=== PATIENT | male | born 1965 | race Caucasian/White ===

== ENCOUNTER 2017-06-03 15:17 | Emergency (ER) | payer MEDICARE, OTHER ==
[~2017-06-03 15:17] MED LIST: ACYC400T PO; ALLO300T2 PO; CENTTAB9 PO; HUMU70IN SQ; INSU100V2 SQ; LEXA10TA PO; PENI500T PO; PRED20 PO; RIVA20 PO; SMZ-800T PO
[2017-06-03 15:19] VITALS: BP 148/88; PULSE 71; RESP 16; TEMP 98.2; O2SAT 98
--- NOTE | 2017-06-03 16:17 | PD ---
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 The patient has chronically dry flaky skin on the pretibial regions bilaterally. He reports that 1 week ago he picked off a piece of flaky skin on his left pretibial region. Since then he has a wound that has not been healing well. He has had occasional bleeding from it. Over the past few days he has developed some increased pain and swelling around the wound and this is what prompted evaluation today. He was concerned because of his history of DVTs. He denies any pain in the left thigh. He denies any chest pain or shortness of breath. Denies fevers or chills. He was seen yesterday by Dr. David Edward and prescribed a 10 day course of Keflex and Bactroban which he has been using as prescribed. He has no other complaints at this time. PFSH Past Medical History Hx Anticoagulant Therapy: Yes Cancer: Yes (aml/lll) Chemotherapy: Yes Diabetes: Yes Patient Takes Glucophage: No Diminished Hearing: No Deep Vein Thrombosis: Yes Gout: Yes Radiation Therapy: Yes Tetanus Vaccination: > 5 Years Past Surgical History Abdominal Surgery: Yes (UMBILICAL/INGROINAL hernia repair) Oral Surgery: Yes (nasal reconstruction) Thoracic Surgery: Yes (port placement and removal) Other Surgery: Yes (enrique filter (ivc) ) Social History Alcohol Use: No Tobacco Use: No Substance Use: No Allergies-Medications (Allergen,Severity, Reaction): Coded Allergies: No Known Allergies (Unverified , 12/12/15) Reported Meds & Prescriptions Reported Meds & Active Scripts Active Reported Humulin R (Insulin Human Regular) 100 Units/Ml Vial 1 Unit SQ DAILYAC Humulin 70/30 (Insulin Isophane & Reg (Human)) 70 /30 Inj 1 Units SQ DIRECTED Centrum (Multivitamins) Tab 1 Tab PO DAILY Smz-Tmp Ds (Sulfamethoxazole-Trimethoprim) 1 Tab Tab 2 Tab PO DAILY Deltasone 20 Mg Tab (Prednisone) 20 Mg Tab 20 Mg PO DAILY Allopurinol 300 Mg Tab 300 Mg PO DAILY Xarelto 20 Mg Tab (Rivaroxaban) 20 Mg Tab 20 Mg PO DAILY Lexapro (Escitalopram Oxalate) 10 Mg Tab 10 Mg PO DAILY Acyclovir 400 mg (Acyclovir) 400 Mg Tab 1 Tab PO BID Pen Vk (Penicillin V Potassium) 500 Mg Tab 500 Mg PO BID Review of Systems Except as stated in HPI: all other systems reviewed are Neg Physical Exam Narrative GENERAL: Well-nourished male in no acute distress SKIN: Warm and dry. Dry cracking skin noted in both pretibial regions. There is an area of skin excoriation that is 2 cm long on the left pretibial region with minimal surrounding cellulitic changes. HEAD: Atraumatic. Normocephalic. EYES: Pupils equal and round. No scleral icterus. No injection or drainage. ENT: No nasal bleeding or discharge. Mucous membranes pink and moist. NECK: Trachea midline. No JVD. CARDIOVASCULAR: Regular rate and rhythm. No murmur appreciated. RESPIRATORY: No accessory muscle use. Clear to auscultation. Breath sounds equal bilaterally. GASTROINTESTINAL: Abdomen soft, non-tender, nondistended. Hepatic and splenic margins not palpable. MUSCULOSKELETAL: Skin as noted above with no pitting edema bilaterally. NEUROLOGICAL: Awake and alert. No obvious cranial nerve deficits. Motor grossly within normal limits. Normal speech. PSYCHIATRIC: Appropriate mood and affect; insight and judgment normal. Data Data Last Documented VS Vital Signs Date Time Temp Pulse Resp B/P (MAP) Pulse Ox O2 Delivery O2 Flow Rate FiO2 06/03/17 17:33 06/03/17 15:19 98.2 71 16 98 Orders Orders Us Leg Venous Doppler (06/03/17 15:29) [facility] Medical Decision Making Medical Screen Exam Complete: Yes Emergency Medical Condition: Yes Medical Record Reviewed: Yes Differential Diagnosis Cellulitis, venous stasis dermatitis, cutaneous ulcer, new DVT Narrative Course 51-year-old male with history of recurrent DVTs, PEs, on eliquis, presents with an area of skin excoriations to the left pretibial region after scratching his leg one week ago. Examination reveals an area of skin excoriation with some surrounding erythema. Currently on Keflex and Bactroban prescribed yesterday. Ultrasound pending. 172: Ultrasound results reveal a DVT of the left leg however it is uncertain the chronicity of this as he has no ultrasounds on record and as noted, the patient has history of multiple DVTs in the past. Clinically the picture is most consistent with skin excoriation with mild cellulitis. Prior to being able to discuss the results with the patient he has apparently eloped. Diagnosis Primary Impression: Left against medical advice Disposition: 07 AGAINST MEDICAL ADVICE Condition: Stable Deyvi Churchill Jun 03, 2017 16:17
--- NOTE | 2017-06-03 17:09 | RADRPT ---
EXAM DATE/TIME: 06/03/2017 15:42 [facility] COMPARISON: No previous studies available for comparison. INDICATIONS : Left leg swelling. MEDICAL HISTORY : Glasses. Anticoagulant therapy. Deep vein thrombosis. GOUT. Diabetes. Chemotherapy. Radiation therapy . SURGICAL HISTORY : Umbilical hernia repair. IVC Filter placement. Nasal reconstruction. Port placement and removal. ENCOUNTER: Initial ACUITY: 1 day PAIN SCORE: 6/10 LOCATION: Left leg. TECHNIQUE: Venous ultrasound of the leg was performed from the inguinal ligament to the proximal calf. Real-rodolfo e, color Doppler and spectral tracing, compression and augmentation techniques were used. FINDINGS: There is deep venous thrombosis extending from the femoral vein proximally into the posterior tibial vein. The superficial venous system is intact. CONCLUSION: 1. Deep venous thrombosis as above Tello Thomason MD on June 03, 2017 at 17:06 Board Certified Radiologist. This report was verified electronically.
== END 2017-06-03 17:34 | disposition left against medical advice (07) ==
LOC: NEPE 15:17
DX: L85.3 Xerosis cutis (principal); I82.412 Acute embolism and thrombosis of left femoral vein; I82.4Z2 Acute embolism and thrombosis of unspecified deep veins of left distal lower extremity; E11.9 Type 2 diabetes mellitus without complications; M10.9 Gout, unspecified; Z79.4 Long term (current) use of insulin; Z86.718 Personal history of other venous thrombosis and embolism; Z86.711 Personal history of pulmonary embolism; Z85.6 Personal history of leukemia
CPT/HCPCS: 93971; 99284

== ENCOUNTER 2018-05-24 15:08 | Inpatient (IN) ==
[2018-05-24] MEDS ORDERED: Morphine Inj 4 MG/ML Vial IV.PUSH ONE ×2 (15:31→17:23)
--- NOTE | 2018-05-24 15:45 | ED ---
HPI General Chief complaint: Chest Pain Stated complaint: Chest pain Dr Durham Time Seen by Provider: 05/24/18 15:26 History of Present Illness HPI narrative: 52-year-old male with remote history of leukemia, history of DVT and PEs, currently on Eliquis, diabetes, IVC filter, presents by private vehicle for evaluation of chest pain. Symptoms started 1 hour prior to arrival. He reports that he was walking inside of his friend's house when he developed substernal chest pressure, left arm cramping sensation, lightheadedness, dizziness, nausea and diaphoresis. Symptoms are moderate with no obvious aggravating relieving factors. He called his primary care physician , Dr. Edward, and was advised to come to the emergency room for further evaluation. He reports that he has had a slight cough and nasal congestion for the past week and is currently on azithromycin for treatment of this. He denies any known history of coronary artery disease. He denies tobacco use. Related Data Home Medications Medication Instructions Recorded Confirmed amitriptyline 25 mg PO TID 05/24/18 05/24/18 amoxicillin 500 mg PO TID 05/24/18 05/24/18 apixaban [Eliquis] 5 mg PO BID 05/24/18 05/24/18 fenofibrate 160 mg PO DAILY 05/24/18 05/24/18 glipizide 5 mg PO BID 05/24/18 05/24/18 methocarbamol 750 mg PO TID 05/24/18 05/24/18 Allergies Allergy/AdvReac Type Severity Reaction Status Date / Time No Known Allergies Allergy Uncoded 12/12/15 23:58 Review of Systems ROS: all other systems reviewed are negative PMFSH Social History Social History Second Hand Smoke Exposure: No Smoking Status: Never smoker How Often Do You Have a Drink Containing Alcohol: Never Recent Travel in [facility] within the Last 8 Weeks: No Recent Out of Country Travel within the Last 8 Weeks: No Immunization History Tetanus Immunization: Unsure Exam Narrative Exam Narrative: GENERAL: Well-developed well-nourished male who appears uncomfortable and anxious on initial examination. His vital signs have been reviewed. SKIN: Warm and dry. HEAD: Atraumatic. Normocephalic. EYES: Pupils equal and round. No scleral icterus. No injection or drainage. ENT: No nasal bleeding or discharge. Mucous membranes pink and moist. NECK: Trachea midline. No JVD. CARDIOVASCULAR: Regular rate and rhythm. No murmur appreciated. RESPIRATORY: No accessory muscle use. Clear to auscultation. Breath sounds equal bilaterally. GASTROINTESTINAL: Abdomen soft, non-tender, nondistended. Hepatic and splenic margins not palpable. MUSCULOSKELETAL: No obvious deformities. The left calf is circumferentially larger than the right which is chronic. Decreased hair growth in the pretibial regions suggestive of peripheral vascular disease. 1+ dorsalis pedis pulses bilaterally. NEUROLOGICAL: Awake and alert. No obvious cranial nerve deficits. Motor grossly within normal limits. Normal speech. Course Initial Documented Vital Signs Temperature 97.6 F 05/24/18 15:11 Pulse Rate 108 H 05/24/18 15:11 Respiratory Rate 28 H 05/24/18 15:11 Blood Pressure 167/68 H 05/24/18 15:11 Pulse Oximetry 99 05/24/18 15:11 Last Documented Vital Signs Temperature 97.6 F 05/24/18 15:11 Pulse Rate 96 H 05/24/18 16:39 Respiratory Rate 18 05/24/18 16:39 Blood Pressure 111/60 05/24/18 16:39 Pulse Oximetry 96 05/24/18 16:39 Medical Decision Making EB Attestation EB supervised visit: Yes Attestation: I, Dr. Cordova, have reviewed the advance practice practitioner' s documentation and am in agreement, met with the patient face to face, made the diagnosis, and the medical decision making was done by me. *My assessment and Findings: The patient is a 52-year-old male with a complicated history of AML/AL L that was treated with stem cell therapy at [facility] in [place], [place]. The patient a complicated history and subsequently developed pulmonary embolism and DVTs. The patient has had an IVC filter placed and was initially on Coumadin, however, had rectal bleeding. The patient developed PEs once again was placed back on Eliquis. The patient states he developed chest pain earlier today that was left-sided to substernal, sharp, radiated down the lateral aspect of the chest wall and down the left arm. The patient had mild shortness of breath, nausea, and diaphoresis. The patient presented to the emergency department had an EKG that had some nonspecific T wave inversions in 1 and aVL as well as mild ST elevation in V3 that was not seen in V2 or V4. The patient was chest pain-free after 2 nitroglycerin sublingual and morphine. The patient denies any history of coronary artery disease but is followed by his ore puncher, Dr. Pereira. The patient denies any previous heart catheterizations or recent exertional symptoms. The patient's troponin was elevated 0.11. Therefore, a call was placed to the patient's ore puncher, however, the call center for Dr. Paredes states he does not come to this hospital and recommended calling the on-call [employer] physician. Therefore, Dr. Chatterjee was paged at 4:40 PM. The patient will be admitted to the medical service with consultation to cardiology. MDM Narrative Medical decision making narrative: The patient was placed on ECG monitoring pulse oximetry. A 12-lead EKG was obtained revealing sinus rhythm with a rate of 93, slight ST elevation is loaded isolated in V3 with no concurrent lead involvement and no reciprocal findings. No comparison EKG on record. Lab work , chest x-ray, CT pulmonary angiogram ordered. The patient was given aspirin, nitroglycerin, morphine. CBC reveals no acute abnormalities. CMP reveals a sodium of 138, carbon dioxide 17.4, BUN 36, creatinine 2.16, GFR 33, glucose 278. There is no baseline renal function on record but the reports that the patient does have a history of chronic kidney disease. CT pulmonary angiogram was therefore canceled and changed to ventilation perfusion study. The initial troponin is 0.11. A call was placed to the patient's ore puncher . 1620: The patient's pain resolved after morphine and 2 sublingual nitroglycerin. I discussed with Dr. Chatterjee who is the ore puncher ultrasonic cleaner for Dr. Pereira who is agreeable with starting the patient on heparin, npo after midnight, he will consult. I discussed the findings with the patient and his at bedside to understand. He is concerned about having to lie down flat for the VQ scan as he develops muscle spasms and claustrophobia under these conditions. He will be given a dose of morphine and Ativan just prior to the test. Medical Screen Exam Complete: Yes Emergency Medical Condition: Yes Differential Diagnosis Differential Diagnosis: Acute coronary syndrome, pulmonary embolism, pericarditis, myocarditis, pneumothorax, influenza, pneumonia Lab Data Result diagrams: 05/24/18 15:35 05/24/18 15:35 Lab Results 05/24/18 05/24/18 05/24/18 Range/Units 15:35 15:35 15:35 WBC 11.0 (4.0-11.0) th/mm3 RBC 5.09 (4.50-5.90) mil/mm3 Hgb 16.4 (13.0-17.0) gm/dL Hct 47.1 (39.0-51.0) % MCV 92.4 (80.0-100.0) fL MCH 32.2 (27.0-34.0) pg MCHC 34.8 (32.0-36.0) % RDW 13.8 (11.6-17.2) % Plt Count 260 (150-450) th/mm3 MPV 8.0 (7.0-11.0) fL Neut % (Auto) 69.8 (16.0-70.0) % Lymph % (Auto) 20.3 (9.0-44.0) % Nye % (Auto) 7.8 (0.0-8.0) % Eos % (Auto) 1.5 (0.0-4.0) % Baso % (Auto) 0.6 (0.0-2.0) % Neut # (Auto) 7.6 (1.8-7.7) th/mm3 Lymph # (Auto) 2.2 (1.0-4.8) th/mm3 Nye # (Auto) 0.9 (0.0-0.9) th/mm3 Eos # (Auto) 0.2 (0.0-0.4) th/mm3 Baso # (Auto) 0.1 (0.0-0.2) th/mm3 WBC Differential . Differential Comment Auto diff final PT 10.7 (9.8-11.6) sec INR 1.1 Ratio APTT 28.5 (23.4-31.7) sec Sodium 130 L (136-145) meq/L Potassium 4.5 (3.5-5.1) meq/L Chloride 99 (98-107) meq/L Carbon Dioxide 17.4 L (21.0-32.0) meq/L Anion Gap 14 (5-15) meq/L BUN 36 H (7-18) mg/dL Creatinine 2.16 H (0.60-1.30) mg/dL Estimated GFR 33 L (>89) mL/min Random Glucose 278 H (74-106) mg/dL Calcium 9.8 (8.5-10.1) mg/dL Magnesium 1.9 (1.5-2.5) mg/dL Total Bilirubin 0.4 (0.2-1.0) mg/dL AST 34 (15-37) U/L ALT 38 (12-78) U/L Alkaline Phosphatase 84 (45-117) U/L Total Creatine Kinase 181 (39-308) U/L CK-MB (CK-2) 3.3 (0.5-3.6) ng/mL Troponin I 0.11 H (0.02-0.05) ng/mL Total Protein 8.4 H (6.4-8.2) g/dL Albumin 4.0 (3.4-5.0) g/dL Imaging Data Radiologist's impression: Chest X-Ray 05/24/18 15:31 CONCLUSION: No acute cardiopulmonary disease. ECG Data EKG Prior to Arrival: No Attestation: I personally reviewed and interpreted this ECG as follows: Interpretation: EKG reveals sinus rhythm with a rate in the 90s inverted T waves noted in lead I and aVL. Mild ST elevation in V3 that is not seen in V2 or V4. Discharge Plan Discharge Order Discharge Orders: ED Use Only Admit Order (Routine); Ordered 05/24/18 Ordered By: Deyvi Churchill Physicians Team ED Provider: Andrea Cordova ED Midlevel Provider: Deyvi Churchill Primary Care Provider: David Edward Rxs /Orders / Referrals /Forms Prescriptions: No Action amoxicillin 500 mg Capsule 500 mg PO TID RF: 0 amitriptyline 25 mg Tablet 25 mg PO TID RF: 0 methocarbamol 750 mg Tablet 750 mg PO TID RF: 0 glipizide 5 mg Tablet 5 mg PO BID RF: 0 fenofibrate 160 mg Tablet 160 mg PO DAILY RF: 0 apixaban [Eliquis] 5 mg Tablet 5 mg PO BID RF: 0 Discharge Interventions Interventions: Vital Signs Last Done: 05/24/18 15:23 Status ED Status: Pending Admission
--- NOTE | 2018-05-24 15:53 | XR ---
EXAM DATE: 05/24/2018 3:50 PM EST AGE/SEX: 52 years / Male INDICATIONS: Chest and back pain, cough. CLINICAL DATA: This is the patient's initial encounter. Patient reports that signs and symptoms have been present for 1 day and indicates a pain score of 10/10. MEDICAL/SURGICAL HISTORY: Leukemia. PE's. None. COMPARISON: No prior exams available for comparison. FINDINGS: A single AP view of the chest demonstrates the lungs to be symmetrically aerated without evidence of mass, infiltrate or effusion. The cardiomediastinal contours are unremarkable. Osseous structures a re intact. CONCLUSION: No acute cardiopulmonary disease. Electronically signed by: Boogie Lindsay MD Board Certified Radiologist 05/24/2018 3:52 PM EST
[2018-05-24 15:55] LABS: Baso # (Auto) 0.1 th/mm3 (0.0-0.2); Baso % (Auto) 0.6 % (0.0-2.0); Eos # (Auto) 0.2 th/mm3 (0.0-0.4); Eos % (Auto) 1.5 % (0.0-4.0); Hematocrit 47.1 % (39.0-51.0); Hemoglobin 16.4 gm/dL (13.0-17.0); Lymph # (Auto) 2.2 th/mm3 (1.0-4.8); Lymph % (Auto) 20.3 % (9.0-44.0); Mean Corpuscular HGB Conc 34.8 % (32.0-36.0); Mean Corpuscular Hemoglobin 32.2 pg (27.0-34.0); Mean Corpuscular Volume 92.4 fL (80.0-100.0); Mono # (Auto) 0.9 th/mm3 (0.0-0.9); Mono % (Auto) 7.8 % (0.0-8.0); Neut # (Auto) 7.6 th/mm3 (1.8-7.7); Neut % (Auto) 69.8 % (16.0-70.0); Platelet Count 260 th/mm3 (150-450); Red Blood Count 5.09 mil/mm3 (4.50-5.90); Red Cell Distribution Width 13.8 % (11.6-17.2)
[2018-05-24 16:09] LABS: Activated Partial Thrombo Time 28.5 sec (23.4-31.7); INR 1.1 Ratio; Prothrombin Time 10.7 sec (9.8-11.6)
[2018-05-24 16:12] LABS: Alanine Aminotransferase 38 U/L (12-78); Alkaline Phosphatase 84 U/L (45-117); Anion Gap 14 meq/L (5-15); Aspartate Aminotransferase 34 U/L (15-37); Blood Urea Nitrogen 36 mg/dL (7-18); Calcium 9.8 mg/dL (8.5-10.1); Carbon Dioxide 17.4 meq/L (21.0-32.0); Chloride 99 meq/L (98-107); Creatine Kinase 181 U/L (39-308); Glomerular Filtration Rate 33 mL/min (>89); Glucose,Random 278 mg/dL (74-106); Magnesium 1.9 mg/dL (1.5-2.5); Potassium 4.5 meq/L (3.5-5.1); Sodium 130 meq/L (136-145); Total Protein 8.4 g/dL (6.4-8.2); Troponin I 0.11 ng/mL (0.02-0.05)
[2018-05-24 16:24] LABS: Creatine Kinase MB 3.3 ng/mL (0.5-3.6)
[2018-05-24] MEDS ORDERED: Heparin 10,000 UNITS/10 ML Vial (for IV use) IV.PUSH STA (16:56)
[2018-05-24] MEDS ORDERED: Sodium Chlor 0.9% Inj 500 ML IV.SIG SCH (17:00)
[2018-05-24] MEDS: Heparin Drip 25,000 UNIT/250 ML BAG IV.CONT PRN (17:23)
[2018-05-24] MEDS ORDERED: Bisacodyl 10 MG Supp RECTAL PRN (17:26)
--- NOTE | 2018-05-24 17:50 | P.HPIM ---
History of Present Illness Service: Hospitalist Primary Care Physician: David Edward MD Chief Complaint: Chest pain History of Present Illness: Patient is a 52-year-old male with a history of leukemia (2010), DVT (Eliquis), PE, IVC filter, diabetes, hyperlipidemia and PVD who presents to the emergency room for evaluation of chest pain. Symptoms started approximately 1 hour prior to arrival and included substernal chest pressure, left arm cramping, lightheadedness, dizziness, nausea and diaphoresis. Patient called his primary care provider who recommended that he go to the emergency room. Chest pain has now resolved with 2 doses of nitro. He is not having any shortness of breath while sitting but reports that any sort of exertion makes him very short of breath. He does currently have some congestion and a cold for which he is taking antibiotics. Reports that he does frequently get cramps throughout his body and that this has been happening ever since he had leukemia , but the current chest pain is different. Denies any history of coronary artery disease. No history of prior heart cath. He does report a history of hyperlipidemia. At one time was on cholesterol medication but improved and was taken off of it. 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 Diabetes is poorly controlled with a last known A1c of approximately 9. No history of COPD or asthma. Non-smoker. 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 Most of his current problems including diabetes, DVT/PE, PVD and cramping developed after his treatment for AML/ALL. Inpatient Certification Inpatient Certification: I certify that the inpatient services were ordered in accordance with Medicare regulations governing the order. This includes certification that hospital inpatient services are reasonable and necessary and in the case of services not specified as inpatient-only under 42 CFR 419.22(n), that they are appropriately provided as inpatient services in accordance to with the 2-midnight benchmark under 43 CFR 412.3(e) Estimated Total Length of Stay (Days): 2 Plans for Post Hospital Care: Not yet determined Review of Systems Review of Systems: all other systems reviewed are negative [facility] Medical History Medical History CKD (chronic kidney disease) (Acute) Diabetes (Acute) Hx of deep venous thrombosis (Acute) Leukemia (Acute) Muscle spasm (Acute) No significant past surgical history (Acute) PVD (peripheral vascular disease) (Acute) Pulmonary emboli (Acute) Presence of IVC filter (Acute) Family History Family History Other No significant family history Social History Social History Second Hand Smoke Exposure: No Smoking Status: Never smoker How Often Do You Have a Drink Containing Alcohol: Never Recent Travel in [facility] within the Last 8 Weeks: No Recent Out of Country Travel within the Last 8 Weeks: No Immunization History Tetanus Immunization: Unsure Medications and Allergies Allergies Allergy/AdvReac Type Severity Reaction Status Date / Time No Known Allergies Allergy Uncoded 12/12/15 23:58 Home Medications Medication Instructions Recorded Confirmed Type amitriptyline 25 mg PO TID 05/24/18 05/24/18 History amoxicillin 500 mg PO TID 05/24/18 05/24/18 History apixaban [Eliquis] 5 mg PO BID 05/24/18 05/24/18 History fenofibrate 160 mg PO DAILY 05/24/18 05/24/18 History glipizide 5 mg PO BID 05/24/18 05/24/18 History methocarbamol 750 mg PO TID 05/24/18 05/24/18 History Active Medications: Active Medications Acetaminophen (Tylenol) 650 mg PO Q4H PRN PRN Reason: Temp > 100.4 Al Hydroxide/Mg Hydroxide (Milk Of Dionne Liq) 30 ml PO Q12H PRN PRN Reason: Mild Constipation Amitriptyline HCl (Elavil) 25 mg PO TID EDI Amoxicillin (Amoxil) 500 mg PO TID EDI Bisacodyl (Dulcolax Supp) 10 mg RECTAL DAILY PRN PRN Reason: SEVERE CONSITIPATION Heparin Sodium/Dextrose (Heparin/D5w 25,000 U/250 Ml) 25,000 unit in 250 mls @ 0 mls/hr IV.CONT TITRATE PRN; Protocol PRN Reason: Per Protocol Last Admin: 05/24/18 17:23 Dose: 1,000 units/hr, 10 mls/hr Sodium Chloride (Ns Inj) 1,000 mls @ 100 mls/hr IV.CONT .Q10H EDI Lactulose (Lactulose Liq) 30 ml PO DAILY PRN PRN Reason: SEVERE CONSITIPATION Nitroglycerin (Nitro-Bid 2% Oint) 1 inch TOPICAL Q6HR EDI Ondansetron HCl (Zofran Inj) 4 mg IV.PUSH Q6H PRN PRN Reason: NAUSEA OR VOMITING Senna/Docusate Sodium (Kaitlin-Colace) 1 tab PO BID [facility] Sennosides (Senokot) 17.2 mg PO Q12H PRN PRN Reason: Moderate Constipation Sodium Chloride (Ns Flush) 2 ml IV.FLUSH UNSCH PRN PRN Reason: FLUSH AFTER USING IV ACCESS Sodium Chloride (Ns Flush) 2 ml IV.FLUSH BID EDI Sodium Chloride (Ns Flush) 2 ml IV.FLUSH PRN PRN PRN Reason: FLUSH AFTER USING IV ACCESS Sodium Chloride (Ns Inj) 2 ml IV.FLUSH BID EDI Sodium Chloride (Ns Inj) 2 ml IV.FLUSH UNSCH PRN PRN Reason: FLUSH AFTER USING IV ACCESS Physical Exam Vital signs: Last Vital Signs Temp 97.6 F 05/24/18 15:11 Pulse 96 H 05/24/18 16:39 Resp 18 05/24/18 16:39 BP 111/60 05/24/18 16:39 Pulse Ox 96 05/24/18 16:39 Intake & Output 05/22/18 05/23/18 05/24/18 05/25/18 06:59 06:59 06:59 06:59 Intake Total 500 / 500 Balance 500 / 500 Weight 127.006 kg Narrative: GENERAL: Well-nourished, well-developed adult male in no obvious distress. SKIN: Warm and dry. Ball of left foot has thick callus. Scattered small scratches and lesions as well as discolored lower legs. HEAD: Atraumatic. Normocephalic. CARDIOVASCULAR: Regular rate and rhythm. No murmur. No chest pain with palpitation of chest wall. RESPIRATORY: No accessory muscle use. Clear to auscultation. Breath sounds equal bilaterally. GASTROINTESTINAL: Abdomen obese, soft, non-tender, non-distended. Positive bowel sounds. MUSCULOSKELETAL: Bilateral lower legs with PVD. Pulses palpable. No edema. no obvious deformities. NEUROLOGICAL: Awake and alert. No obvious cranial nerve deficits. Motor grossly within normal limits. Normal speech. PSYCHIATRIC: Appropriate mood and affect; insight and judgment good. Results Labs CBC & Chem 7: 05/24/18 15:35 05/24/18 15:35 Imaging Impressions Chest X-Ray 05/24/18 15:31 CONCLUSION: No acute cardiopulmonary disease. Caprini VTE Risk Assessment Caprini VTE Risk Assessment: Moderate/High Risk (score >= 2) Caprini Risk Assessment Model: Point Value = 1 Point Value = 2 Point Value = 3 Point Value = 5 Age 41-60 Minor surgery BMI > 25 kg/m2 Swollen legs Varicose veins or History of unexplained or recurrent spontaneous Oral contraceptives or hormone replacement Sepsis (< 1 month) Serious lung disease, including pneumonia (< 1 month) Abnormal pulmonary function Acute myocardial infarction Congestive heart failure (< 1 month) History of inflammatory bowel disease Medical patient at bed rest Age 61-74 Arthroscopic surgery Major open surgery (> 45 min) Laparoscopic surgery (> 45 min) Malignancy Confined to bed (> 72 hours) Immobilizing plaster cast Central venous access Age >= 75 History of VTE Family history of VTE Factor V Leiden Prothrombin [id number] Lupus anticoagulant Anticardiolipin antibodies Elevated serum homocysteine Heparin-induced thrombocytopenia Other congenital or acquired thrombophilia Stroke (< 1 month) Elective arthroplasty Hip, pelvis, or leg fracture Acute spinal cord injury (< 1 month) Prophylaxis Regimen: Total Risk Factor Score Risk Level Prophylaxis Regimen 0-1 Low Early ambulation 2 Moderate Order ONE of the following: *Sequential Compression Device (SCD) *Heparin 5000 units SQ BID 3-4 Higher Order ONE of the following medications: *Heparin 5000 units SQ TID *Enoxaparin/Lovenox 40 mg SQ daily (WT < 150 kg, CrCl > 30 mL/min) *Enoxaparin/Lovenox 30 mg SQ daily (WT < 150 kg, CrCl > 10-29 mL/min) *Enoxaparin/Lovenox 30 mg SQ BID (WT < 150 kg, CrCl > 30 mL/min) AND/OR *Sequential Compression Device (SCD) 5 or more Highest Order ONE of the following medications: *Heparin 5000 units SQ TID (Preferred with Epidurals) *Enoxaparin/Lovenox 40 mg SQ daily (WT < 150 kg, CrCl > 30 mL/min) *Enoxaparin/Lovenox 30 mg SQ daily (WT < 150 kg, CrCl > 10-29 mL/min) *Enoxaparin/Lovenox 30 mg SQ BID (WT < 150 kg, CrCl > 30 mL/min) AND *Sequential Compression Device (SCD) Assessment and Plan Plan Patient is a 52-year-old male with a history of leukemia (2010), DVT ( Eliquis), PE, IVC filter, diabetes, hyperlipidemia and PVD who presents to the emergency room for evaluation of chest pain. Chest pain/ACS -Consult to cardiology. -Start heparin drip. N.p.o. Possible cath in a.m. Shortness of breath; rule out PE; current respiratory infection -Significant history of DVT & PE with IVF filter -VQ scan ordered; Dopplers ordered -Continue Abx from home Chronic kidney disease with possible MARRY -Creatinine 2.16 at admit, Baseline unknown. -IVF fluid Hyponatremia -Uncertain etiology but may be due to Elavil -IVF fluid; monitor. Diabetes; poorly controlled -Monitor blood glucose -Start sliding scale with diet. DVT prophylaxis: On heparin drip Discharge planning: To be determined
--- NOTE | 2018-05-24 19:01 | US ---
EXAM DATE: 05/24/2018 6:57 PM EST AGE/SEX: 52 years / Male INDICATIONS: Bilateral leg swelling. CLINICAL DATA: This is the patient's subsequent encounter. Patient reports that signs and symptoms h ave been present for 1 day and indicates a pain score of 5/10. MEDICAL/SURGICAL HISTORY: Diabetes. Leukemia. Chronic kidney disease. DVT. IVC filter. Periphe ral artery disease. . IVC filter placement. COMPARISON: [facility] [place], US LEG LEFT VENOUS DOPPLER, 06/03/2017. . TECHNIQUE: Venous ultrasound of both lower extremities was performed from the inguinal ligament to t he proximal calf. Real-time, color Doppler and spectral tracing, compression and augmentation techni ques were used. FINDINGS: Right Leg: Normal compression of the deep venous system from the inguinal region to the proximal ivett f. No echogenic clot is seen. Normal response of the venous system to augmentation and respiration. Left Leg: Normal compression of the deep venous system from the inguinal region to the proximal calf . No echogenic clot is seen. Normal response of the venous system to augmentation and respiration. Other: None. CONCLUSION: 1. No sonographic evidence for lower extremity DVT. Electronically signed by: Michel Cary MD Board Certified Radiologist 05/24/2018 6:59 PM ES T
[2018-05-24 19:08] LABS: Chol/HDL Ratio 6.71 Ratio; HDL Cholesterol 38.1 mg/dL (40.0-60.0); Thyroid Stimulating Hormone 3.17 uIU/mL (0.358-3.740); Troponin I 0.11 ng/mL (0.02-0.05)
[2018-05-24 19:59] LABS: INR 1.1 Ratio; Prothrombin Time 11.4 sec (9.8-11.6)
[2018-05-24 20:26] LABS: Activated Partial Thrombo Time 118.6 sec (23.4-31.7)
[2018-05-24] MEDS: Senna/Docusate Sodium 8.6/50 MG Tablet PO SCH (20:26)
[2018-05-24] MEDS: Amitriptyline 25 MG Tablet PO SCH (20:26)
[2018-05-24] MEDS: Acetaminophen 325 MG Tablet PO PRN (20:26)
[2018-05-24] MEDS: Sod Chloride 0.9% Inj 1,000 ML IV.CONT SCH (20:31)
[2018-05-25] MEDS: Acetaminophen 325 MG Tablet PO PRN (01:17)
[2018-05-25 03:57] LABS: Baso % (Auto) 0.5 % (0.0-2.0); Eos # (Auto) 0.2 th/mm3 (0.0-0.4); Eos % (Auto) 4.1 % (0.0-4.0); Hematocrit 40.6 % (39.0-51.0); Hemoglobin 14.3 gm/dL (13.0-17.0); Lymph # (Auto) 2.6 th/mm3 (1.0-4.8); Lymph % (Auto) 44.7 % (9.0-44.0); Mean Corpuscular HGB Conc 35.2 % (32.0-36.0); Mean Corpuscular Hemoglobin 32.2 pg (27.0-34.0); Mean Corpuscular Volume 91.7 fL (80.0-100.0); Mono # (Auto) 0.5 th/mm3 (0.0-0.9); Mono % (Auto) 8.7 % (0.0-8.0); Neut # (Auto) 2.4 th/mm3 (1.8-7.7); Platelet Count 233 th/mm3 (150-450); Red Blood Count 4.43 mil/mm3 (4.50-5.90); Red Cell Distribution Width 13.5 % (11.6-17.2); White Blood Count 5.8 th/mm3 (4.0-11.0)
[2018-05-25 04:27] LABS: Calcium 8.9 mg/dL (8.5-10.1); Carbon Dioxide 21.4 meq/L (21.0-32.0); Potassium 4.2 meq/L (3.5-5.1); Troponin I 0.11 ng/mL (0.02-0.05)
[2018-05-25] MEDS: Sod Chloride 0.9% Inj 1,000 ML IV.CONT SCH ×3 (04:44→17:09)
[2018-05-25] MEDS ORDERED: Morphine Sulfate Inj 8 MG/ML Vial IV.PUSH PRN (08:14)
[2018-05-25] MEDS: Amitriptyline 25 MG Tablet PO SCH ×3 (08:41→17:09)
[2018-05-25] MEDS: Senna/Docusate Sodium 8.6/50 MG Tablet PO SCH ×2 (08:41→20:16)
--- NOTE | 2018-05-25 08:49 | MB ---
cc: Daniel Meeks MD DATE: 05/25/2018 REASON FOR CONSULTATION: Abnormal troponin, chest pain. HISTORY OF PRESENT ILLNESS: The patient is a 52-year-old white male, followed in our office Dr. Carter Pereira, with a history of leukemia, deep venous thrombosis, pulmonary embolism, hypertension, hyperlipidemia, who was in his usual state of health up until yesterday afternoon when he began to experience substernal chest "pressure" associated with shortness of breath, possibly with some radiation to his left arm. The episode lasted about an hour. The patient states chronically he has intermittent "spasms" of his mid chest, which last a few minutes, often relieved by drinking pickle juice. He has noticed these "spasms" ever since his treatment for leukemia several years ago. He denies pleurisy, dizziness, syncope, near syncope, palpitations, pedal edema, paroxysmal nocturnal dyspnea. PAST MEDICAL HISTORY: 1. 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 2. History of pulmonary embolism 12/02/2016, with a prior history of deep venous thrombosis and inferior vena cava filter placement. 3. Hypertension. 4. Hyperlipidemia. 5. Diabetes. CARDIAC MEDICATIONS AT HOME: 1. Apixaban 5 mg b.i.d. 2. Fenofibrate 160 mg daily. ALLERGIES: NO KNOWN DRUG ALLERGIES. FAMILY HISTORY: There is no significant family history of early myocardial infarction. SOCIAL HISTORY: The patient denies any history of alcohol or tobacco abuse. REVIEW OF SYSTEMS: As in history of present illness, otherwise negative or noncontributory. He also denies headache, abdominal pain, melena, dyspepsia, bright red blood per rectum, fevers. PHYSICAL EXAMINATION: VITAL SIGNS: His blood pressure 128/63 with a pulse of 80, respirations 16. GENERAL: He is a well-developed, well-nourished, white male, in no acute distress. NECK: Jugular venous pressure is normal. Carotid pulses are 2+ bilaterally and without bruits. CHEST: Reveals clear lungs allen. CARDIAC: He has a regular rhythm and rate without S3, S4, or murmur. ABDOMEN: He has a soft, nontender abdomen. Bowel sounds are present. There is no definite hepatosplenomegaly. EXTREMITIES: Reveals no clubbing, cyanosis, or edema. Peripheral pulses are normal throughout. DIAGNOSTIC DATA: EKG shows sinus rhythm, left ventricular hypertrophy with repolarization abnormality, left anterior fascicular block, poor R-wave progression, nonspecific intraventricular conduction delay. Chest x-ray shows no acute disease. Laboratory data includes normal CBC. Potassium 4.2, BUN 36, creatinine 2.16. Troponin 0.11. Total cholesterol 256, LDL 155, HDL 38, triglycerides 313. IMPRESSION: Somewhat atypical chest discomfort, minimally abnormal troponin levels in the setting of renal insufficiency, in this 52-year-old white male with a history of leukemia, pulmonary embolism, deep venous thrombosis, hypertension, hyperlipidemia. Despite fairly prolonged chest discomfort yesterday, CK level is negative for myocardial infarction. It is somewhat difficult to interpret the slight troponin elevation in the setting of renal insufficiency. He does have a number of risk factors for coronary artery disease including diabetes, hypertension, hyperlipidemia. EKG is overall nondiagnostic. RECOMMENDATIONS: Check a Lexiscan nuclear stress test. Unless it is markedly abnormal, would recommend medical therapy, especially with his renal insufficiency. MD ROMEL Packer/deidre , 08:13 AM , 08:22 AM JOEL
[2018-05-25] MEDS ORDERED: Regadenoson Inj 0.4 MG/5 ML Syringe IV.PUSH ONE (10:34)
--- NOTE | 2018-05-25 11:28 | P.PN ---
Subjective Interval history: Follow-up of atypical chest pain May 25, 2018-patient seen and examined, currently denies any chest pain or shortness of breath. N.p.o. pending nuclear stress test. by the bedside. Only complains of neck pain. Physical Exam Vital signs: Vital Signs 05/24/18 15:11 05/24/18 15:23 05/24/18 15:43 Temperature 97.6 F Pulse Rate 108 H 103 H 107 H Respiratory Rate 28 H 20 20 Blood Pressure 167/68 H Pulse Oximetry 99 99 99 05/24/18 16:39 05/24/18 18:13 05/24/18 19:00 Temperature 98.2 F Pulse Rate 96 H 86 88 Respiratory Rate 18 18 18 Blood Pressure 111/60 110/60 153/79 H Pulse Oximetry 96 97 05/24/18 20:00 05/24/18 21:00 05/24/18 21:54 Temperature Pulse Rate 82 80 Respiratory Rate Blood Pressure Pulse Oximetry 94 L 95 05/24/18 22:00 05/24/18 23:00 05/25/18 00:00 Temperature 98.2 F Pulse Rate 82 80 80 Respiratory Rate 18 Blood Pressure 121/47 L Pulse Oximetry 98 05/25/18 01:00 05/25/18 02:00 05/25/18 03:00 Temperature 98.0 F Pulse Rate 79 82 75 Respiratory Rate 16 Blood Pressure 128/63 Pulse Oximetry 100 05/25/18 04:00 05/25/18 05:00 05/25/18 06:00 Temperature Pulse Rate 86 83 75 Respiratory Rate Blood Pressure Pulse Oximetry 05/25/18 07:00 05/25/18 08:00 05/25/18 10:39 Temperature 98.0 F Pulse Rate 81 Respiratory Rate 20 Blood Pressure 105/48 L Pulse Oximetry 96 96 96 Intake & Output 05/24/18 05/25/18 05/25/18 18:59 06:59 18:59 Intake Total 500 / 500 1140 / 1140 Output Total 1900 / 1900 Balance 500 / 500 -760 / -760 Weight 127.006 kg 122.7 kg Intake: IV 500 / 500 900 / 900 NS Inj 1,000 ML @ 100 mls/hr IV 900 / 900 .CONT .Q10H EDI Rx#:[id number] NS Inj 500 ML @ 1000 mls/hr IV. 500 / 500 SIG BOLUS EDI Rx#:[id number] Oral 240 / 240 Output: Urine 1900 / 1900 Narrative: GENERAL: Well-nourished, well-developed adult male in no obvious distress. SKIN: Warm and dry. Ball of left foot has thick callus. Scattered small scratches and lesions as well as discolored lower legs. HEAD: Atraumatic. Normocephalic. CARDIOVASCULAR: Regular rate and rhythm. No murmur. No chest pain with palpitation of chest wall. RESPIRATORY: No accessory muscle use. Clear to auscultation. Breath sounds equal bilaterally. GASTROINTESTINAL: Abdomen obese, soft, non-tender, non-distended. Positive bowel sounds. MUSCULOSKELETAL: Bilateral lower legs with PVD. Pulses palpable. No edema. no obvious deformities. NEUROLOGICAL: Awake and alert. No obvious cranial nerve deficits. Motor grossly within normal limits. Normal speech. PSYCHIATRIC: Appropriate mood and affect; insight and judgment good. Results - Labs CBC & Chem 7: 05/25/18 02:50 05/25/18 02:50 Laboratory Results - last 24 hr 05/24/18 05/24/18 05/24/18 15:35 15:35 15:35 WBC 11.0 RBC 5.09 Hgb 16.4 Hct 47.1 MCV 92.4 MCH 32.2 MCHC 34.8 RDW 13.8 Plt Count 260 MPV 8.0 Neut % (Auto) 69.8 Lymph % (Auto) 20.3 Griggs % (Auto) 7.8 Eos % (Auto) 1.5 Baso % (Auto) 0.6 Neut # (Auto) 7.6 Lymph # (Auto) 2.2 Griggs # (Auto) 0.9 Eos # (Auto) 0.2 Baso # (Auto) 0.1 WBC Differential . Differential Comment Auto diff final PT 10.7 INR 1.1 APTT 28.5 Sodium 130 L Potassium 4.5 Chloride 99 Carbon Dioxide 17.4 L Anion Gap 14 BUN 36 H Creatinine 2.16 H Estimated GFR 33 L POC Glucose Random Glucose 278 H Calcium 9.8 Magnesium 1.9 Total Bilirubin 0.4 AST 34 ALT 38 Alkaline Phosphatase 84 Total Creatine Kinase 181 CK-MB (CK-2) 3.3 Troponin I 0.11 H Total Protein 8.4 H Albumin 4.0 Triglycerides Cholesterol LDL Cholesterol, Calc HDL Cholesterol Cholesterol/HDL Ratio TSH 05/24/18 05/24/18 05/24/18 18:10 19:20 21:08 WBC RBC Hgb Hct MCV MCH MCHC RDW Plt Count MPV Neut % (Auto) Lymph % (Auto) Griggs % (Auto) Eos % (Auto) Baso % (Auto) Neut # (Auto) Lymph # (Auto) Griggs # (Auto) Eos # (Auto) Baso # (Auto) WBC Differential Differential Comment PT 11.4 INR 1.1 APTT 118.6 H* D 51.1 H D Sodium Potassium Chloride Carbon Dioxide Anion Gap BUN Creatinine Estimated GFR POC Glucose Random Glucose Calcium Magnesium Total Bilirubin AST ALT Alkaline Phosphatase Total Creatine Kinase CK-MB (CK-2) Troponin I 0.11 H Total Protein Albumin Triglycerides 313 H Cholesterol 256 H LDL Cholesterol, Calc 155 H HDL Cholesterol 38.1 L Cholesterol/HDL Ratio 6.71 TSH 3.170 05/24/18 05/24/18 05/24/18 22:21 23:00 23:00 WBC RBC Hgb Hct MCV MCH MCHC RDW Plt Count MPV Neut % (Auto) Lymph % (Auto) Griggs % (Auto) Eos % (Auto) Baso % (Auto) Neut # (Auto) Lymph # (Auto) Griggs # (Auto) Eos # (Auto) Baso # (Auto) WBC Differential Differential Comment PT INR APTT 36.5 H D Sodium Potassium Chloride Carbon Dioxide Anion Gap BUN Creatinine Estimated GFR POC Glucose 226 H Random Glucose Calcium Magnesium Total Bilirubin AST ALT Alkaline Phosphatase Total Creatine Kinase CK-MB (CK-2) Troponin I 0.10 H Total Protein Albumin Triglycerides Cholesterol LDL Cholesterol, Calc HDL Cholesterol Cholesterol/HDL Ratio TSH 05/25/18 05/25/18 05/25/18 02:50 02:50 02:50 WBC 5.8 RBC 4.43 L Hgb 14.3 D Hct 40.6 MCV 91.7 MCH 32.2 MCHC 35.2 RDW 13.5 Plt Count 233 MPV 8.0 Neut % (Auto) 42.0 Lymph % (Auto) 44.7 H Griggs % (Auto) 8.7 H Eos % (Auto) 4.1 H Baso % (Auto) 0.5 Neut # (Auto) 2.4 Lymph # (Auto) 2.6 Griggs # (Auto) 0.5 Eos # (Auto) 0.2 Baso # (Auto) 0.0 WBC Differential . Differential Comment Auto diff final PT INR APTT 30.1 Sodium 134 L Potassium 4.2 Chloride 101 Carbon Dioxide 21.4 Anion Gap 12 BUN 37 H Creatinine 1.73 H Estimated GFR 42 L POC Glucose Random Glucose 241 H Calcium 8.9 D Magnesium Total Bilirubin AST ALT Alkaline Phosphatase Total Creatine Kinase CK-MB (CK-2) Troponin I 0.11 H Total Protein Albumin Triglycerides Cholesterol LDL Cholesterol, Calc HDL Cholesterol Cholesterol/HDL Ratio TSH 05/25/18 05/25/18 09:37 09:48 WBC RBC Hgb Hct MCV MCH MCHC RDW Plt Count MPV Neut % (Auto) Lymph % (Auto) Griggs % (Auto) Eos % (Auto) Baso % (Auto) Neut # (Auto) Lymph # (Auto) Griggs # (Auto) Eos # (Auto) Baso # (Auto) WBC Differential Differential Comment PT INR APTT 28.6 Sodium Potassium Chloride Carbon Dioxide Anion Gap BUN Creatinine Estimated GFR POC Glucose 239 H Random Glucose Calcium Magnesium Total Bilirubin AST ALT Alkaline Phosphatase Total Creatine Kinase CK-MB (CK-2) Troponin I Total Protein Albumin Triglycerides Cholesterol LDL Cholesterol, Calc HDL Cholesterol Cholesterol/HDL Ratio TSH Microbiology 05/24/18 15:43 Nasal Wash Influenza Types A,B Antigen - Final Negative for FLU A and B antigen Infection due to influenza A or B cannot be ruled out since the antigen present in the sample may be below the detection limit of the test. - Imaging Impressions Venous Doppler Study 05/24/18 00:00 CONCLUSION: 1. No sonographic evidence for lower extremity DVT. Chest X-Ray 05/24/18 15:31 CONCLUSION: No acute cardiopulmonary disease. Assessment and Plan - Plan 52-year-old man with Atypical chest pain Currently on heparin drip, Nitropaste Appreciate input from cardiology pending nuclear stress test Continue ACS rule out per protocol serial cardiac enzyme and EKGs Shortness of breath; rule out PE; current respiratory infection -Significant history of DVT & PE with IVF filter -VQ scan ordered; Dopplers ordered -Continue Abx from home, however Xarelto currently on hold Acute on chronic kidney disease stage II and III Renal indices improving with IV fluid hydration Continue to monitor BUN and creatinine, avoid all nephrotoxic drug. Hyponatremia Improving Diabetes; poorly controlled Continue with insulin sliding scale, will start basal insulin Hold all oral hyperglycemic agents DVT prophylaxis: On heparin drip
[2018-05-25] MEDS ORDERED: Dextrose 50% in Water 50 ML Vial IV.PUSH PRN (12:25)
[2018-05-25] MEDS: Insulin NovoLOG Aspart Correctional Sugar Inj SQ SCH ×3 (12:48→20:15)
[2018-05-25] MEDS: Insulin Detemir Inj 1,000 UNIT/10 ML Vial SQ SCH (20:15)
--- NOTE | 2018-05-25 20:46 | ECG ---
Date Performed: 05/24/2018 Time Performed: 15:29:12 PTAGE: 52 years EKG: Sinus rhythm LEFT ANTERIOR FASCICULAR BLOCK LEFT VENTRICULAR HYPERTROPHY AND ST-T CHANGE POSSIBLE SEPTAL MYOCARDI AL INFARCTION LATERAL MYOCARDIAL INFARCTION ACUTE MS INTERPRETATION BASED ON A DEFAULT AGE OF 4 0 YEARS NO PREVIOUS TRACING DOCTOR: Francisco Chua Interpretating Date/Time 05/25/2018 20:41:56
[2018-05-26] MEDS: Heparin Drip 25,000 UNIT/250 ML BAG IV.CONT PRN (00:12)
[2018-05-26] MEDS: Sod Chloride 0.9% Inj 1,000 ML IV.CONT SCH ×3 (00:13→10:19)
[2018-05-26 01:27] LABS: Baso % (Auto) 0.8 % (0.0-2.0); Eos # (Auto) 0.2 th/mm3 (0.0-0.4); Eos % (Auto) 3.7 % (0.0-4.0); Hematocrit 40.1 % (39.0-51.0); Hemoglobin 13.7 gm/dL (13.0-17.0); Lymph # (Auto) 2.1 th/mm3 (1.0-4.8); Lymph % (Auto) 46.3 % (9.0-44.0); Mean Corpuscular HGB Conc 34.3 % (32.0-36.0); Mean Corpuscular Hemoglobin 31.4 pg (27.0-34.0); Mean Corpuscular Volume 91.7 fL (80.0-100.0); Mean Platelet Volume 7.5 fL (7.0-11.0); Mono # (Auto) 0.4 th/mm3 (0.0-0.9); Mono % (Auto) 9.6 % (0.0-8.0); Neut # (Auto) 1.8 th/mm3 (1.8-7.7); Neut % (Auto) 39.6 % (16.0-70.0); Platelet Count 202 th/mm3 (150-450); Red Blood Count 4.37 mil/mm3 (4.50-5.90); Red Cell Distribution Width 13.6 % (11.6-17.2); White Blood Count 4.5 th/mm3 (4.0-11.0)
[2018-05-26 01:50] LABS: Alanine Aminotransferase 39 U/L (12-78); Albumin 3.3 g/dL (3.4-5.0); Alkaline Phosphatase 73 U/L (45-117); Anion Gap 8 meq/L (5-15); Aspartate Aminotransferase 30 U/L (15-37); Blood Urea Nitrogen 30 mg/dL (7-18); Calcium 8.6 mg/dL (8.5-10.1); Carbon Dioxide 24.6 meq/L (21.0-32.0); Chloride 104 meq/L (98-107); Glomerular Filtration Rate 53 mL/min (>89); Glucose,Random 246 mg/dL (74-106); Potassium 4.4 meq/L (3.5-5.1); Sodium 137 meq/L (136-145)
[2018-05-26 04:30] VITALS: RESP 16
[2018-05-26] MEDS ORDERED: Morphine Sulfate Inj 8 MG/ML Vial IV.PUSH SCH (08:45)
--- NOTE | 2018-05-26 10:15 | NM ---
EXAM DATE: 05/26/2018 10:06 AM EST AGE/SEX: 52 years / Male INDICATIONS:Angina. . Chest pain with dyspnea. CLINICAL DATA: This is the patient's initial encounter. Patient reports that signs and symptoms have been present for 1 day and indicates a pain score of 6/10. MEDICAL/SURGICAL HISTORY: Diabetes mellitus type II. Renal insufficiency, chronic. Peripheral vascular disease. Leukemia. Hypertension. Hyperlipidemia. None. COMPARISON: No prior exams available for comparison. DOSE: 30.3 mCi Tc 99m Myoview at rest 30.2 mCi [id number] at stress 0.4 mg Lexiscan STRESS SYMPTOMS: None. EJECTION FRACTION: 32 % TECHNIQUE: The patient underwent pharmacologic stress with infusion of prescribed dose. Continuous ECG tracing was monitored during stress. Gated SPECT imaging was performed after stress and conventi onal SPECT imaging was performed at rest. The examination was performed on a SPECT/CT scanner, both attenuation and non-corrected datasets were reviewed. Two day protocol was used. FINDINGS: Distribution: The maximum perfused segment at stress is in the lateral wall. Perfusion Study: Fixed perfusion abnormality is identified in the anterior wall. There is associate d hypokinesia. Gated Study: Ventricular chamber is enlarged. There is significant hypokinesia along the anterior wa ll with mild to moderate generalized hypokinesia. The ejection fraction is calculated at 32%. RISK CATEGORY: High (>3% Annual Mortality Rate) CONCLUSION: 1. Fixed perfusion abnormality involving the anterior wall of the left ventricle. 2. No significant reversible perfusion abnormalities noted. 3. Ventricular dilatation with depressed ejection fraction measuring 32%. 4. Generalized hypokinesia to severe along the anterior wall. Electronically signed by: Fernando Sheikh MD Board Certified Radiologist 05/26/2018 10:14 AM EST
[2018-05-26] MEDS: Insulin Detemir Inj 1,000 UNIT/10 ML Vial SQ SCH (10:18)
[2018-05-26] MEDS: Amitriptyline 25 MG Tablet PO SCH ×2 (10:18→12:31)
[2018-05-26] MEDS: Insulin NovoLOG Aspart Correctional Sugar Inj SQ SCH ×2 (10:18→13:31)
[2018-05-26] MEDS: Senna/Docusate Sodium 8.6/50 MG Tablet PO SCH (10:19)
--- NOTE | 2018-05-26 10:23 | P.PNCA ---
Subjective Interval history: Denies CP, dyspnea, dizziness, palpitations. Medications and Allergies Active Medications: Active Medications Acetaminophen (Tylenol) 650 mg PO Q4H PRN PRN Reason: Temp > 100.4 Last Admin: 05/25/18 01:17 Dose: 650 mg Al Hydroxide/Mg Hydroxide (Milk Of Magnesia Liq) 30 ml PO Q12H PRN PRN Reason: Mild Constipation Amitriptyline HCl (Elavil) 25 mg PO TID [facility] Last Admin: 05/25/18 17:09 Dose: 25 mg Amoxicillin (Amoxil) 500 mg PO TID [facility] Last Admin: 05/25/18 17:09 Dose: 500 mg Bisacodyl (Dulcolax Supp) 10 mg RECTAL DAILY PRN PRN Reason: SEVERE CONSITIPATION Dextrose (D50w Vial) 50 ml IV.PUSH UNSCH PRN PRN Reason: PER HYPOGLYCEMIA PROTOCOL Glucagon (Glucagon Inj) 1 mg OTHER PRN PRN PRN Reason: for Hypoglycemia Protocol Heparin Sodium/Dextrose (Heparin/D5w 25,000 U/250 Ml) 25,000 unit in 250 mls @ 0 mls/hr IV.CONT TITRATE PRN; Protocol PRN Reason: Per Protocol Last Titration: 05/26/18 03:28 Dose: 1,100 units/hr, 11 mls/hr Sodium Chloride (Ns Inj) 1,000 mls @ 100 mls/hr IV.CONT .Q10H [facility] Last Admin: 05/26/18 04:04 Dose: 100 mls/hr Insulin Aspart (Novolog Insulin Correctional Sugar Inj) 0 unit SQ ACHS [facility]; Protocol Last Admin: 05/25/18 20:15 Dose: 7 unit Insulin Detemir (Levemir Inj) 10 unit SQ BID [facility] Last Admin: 05/25/18 20:15 Dose: 10 unit Lactulose (Lactulose Liq) 30 ml PO DAILY PRN PRN Reason: SEVERE CONSITIPATION Morphine Sulfate (Morphine Inj) 5 mg IV.PUSH SPEED BELT SANDER [facility] Stop: 05/27/18 08:44 Last Admin: 05/26/18 08:48 Dose: 5 mg Nitroglycerin (Nitro-Bid 2% Oint) 1 inch TOPICAL Q6HR [facility] Last Admin: 05/26/18 05:10 Dose: 1 inch Ondansetron HCl (Zofran Inj) 4 mg IV.PUSH Q6H PRN PRN Reason: NAUSEA OR VOMITING Senna/Docusate Sodium (Kaitlin-Colace) 1 tab PO BID [facility] Last Admin: 05/25/18 20:16 Dose: Not Given Sennosides (Senokot) 17.2 mg PO Q12H PRN PRN Reason: Moderate Constipation Sodium Chloride (Ns Inj) 2 ml IV.FLUSH BID [facility] Last Admin: 05/25/18 20:16 Dose: Not Given Sodium Chloride (Ns Inj) 2 ml IV.FLUSH UNSCH PRN PRN Reason: FLUSH AFTER USING IV ACCESS Allergies Allergy/AdvReac Type Severity Reaction Status Date / Time No Known Allergies Allergy Uncoded 12/12/15 23:58 Home Medications Medication Instructions Recorded Confirmed Type amitriptyline 25 mg PO TID 05/24/18 05/24/18 History amoxicillin 500 mg PO TID 05/24/18 05/24/18 History apixaban [Eliquis] 5 mg PO BID 05/24/18 05/24/18 History fenofibrate 160 mg PO DAILY 05/24/18 05/24/18 History glipizide 5 mg PO BID 05/24/18 05/24/18 History methocarbamol 750 mg PO TID 05/24/18 05/24/18 History Physical Exam Vital signs: Vital Signs 05/25/18 10:39 05/25/18 13:00 05/25/18 14:00 Temperature Pulse Rate 90 94 H Respiratory Rate Blood Pressure Pulse Oximetry 96 05/25/18 15:00 05/25/18 16:00 05/25/18 17:00 Temperature 98.0 F Pulse Rate 97 H 88 92 H Respiratory Rate 20 Blood Pressure 127/54 L Pulse Oximetry 95 05/25/18 18:00 05/25/18 19:00 05/25/18 20:00 Temperature Pulse Rate 96 H 99 H 96 H Respiratory Rate Blood Pressure Pulse Oximetry 97 05/25/18 21:00 05/25/18 22:00 05/25/18 22:15 Temperature 98.1 F Pulse Rate 64 94 H 82 Respiratory Rate 18 Blood Pressure 146/78 H Pulse Oximetry 97 05/25/18 23:00 05/26/18 00:00 05/26/18 01:00 Temperature Pulse Rate 85 86 83 Respiratory Rate Blood Pressure Pulse Oximetry 05/26/18 02:00 05/26/18 03:00 05/26/18 04:00 Temperature 98.2 F Pulse Rate 88 86 80 Respiratory Rate 16 Blood Pressure 149/55 H Pulse Oximetry 98 05/26/18 05:00 05/26/18 06:00 Temperature Pulse Rate 81 80 Respiratory Rate Blood Pressure Pulse Oximetry Intake & Output 05/25/18 05/26/18 05/26/18 18:59 06:59 18:59 Intake Total 1480 / 1480 1490 / 1490 Balance 1480 / 1480 1490 / 1490 Weight 121.2 kg Intake: IV 1000 / 1000 1250 / 1250 Heparin/D5W 25,000 U/250 mL 25, 250 / 250 000 unit In 250 ml @ Per Protocol IV.CONT TITRATE PRN Rx #:[id number] NS Inj 1,000 ML @ 100 mls/hr IV 1000 / 1000 1000 / 1000 .CONT .Q10H EDI Rx#:[id number] Oral 480 / 480 240 / 240 Other: # Voids 4 4 - Constitutional no acute distress - Routine Neck Exam Absent: JVD - Routine Respiratory Exam Present: CTA bilaterally - Routine Cardiovascular Exam Present: RRR, S1, S2. Absent: murmur, gallop - Routine Abdominal Exam Present: soft, normoactive bowel sounds. Absent: tenderness, organomegaly - Routine Extremities Exam Absent: cyanosis, clubbing, edema Results 05/26/18 01:13 05/26/18 01:13 Cardiac Enzymes 05/24/18 05/24/18 05/24/18 Range/Units 15:35 18:10 23:00 AST 34 (15-37) U/L CK-MB (CK-2) 3.3 (0.5-3.6) ng/mL Troponin I 0.11 H 0.11 H 0.10 H (0.02-0.05) ng/mL 05/25/18 05/26/18 Range/Units 02:50 01:13 AST 30 (15-37) U/L CK-MB (CK-2) (0.5-3.6) ng/mL Troponin I 0.11 H (0.02-0.05) ng/mL Coagulation 05/24/18 05/24/18 05/24/18 Range/Units 15:35 19:20 21:08 PT 10.7 11.4 (9.8-11.6) sec APTT 28.5 118.6 H* D 51.1 H D (23.4-31.7) sec 05/24/18 05/25/18 05/25/18 Range/Units 23:00 02:50 09:37 PT (9.8-11.6) sec APTT 36.5 H D 30.1 28.6 (23.4-31.7) sec 05/25/18 05/26/18 Range/Units 18:05 01:13 PT (9.8-11.6) sec APTT 27.0 27.8 (23.4-31.7) sec Lipids 05/24/18 Range/Units 18:10 Triglycerides 313 H (42-150) mg/dL Cholesterol 256 H (120-200) mg/dL HDL Cholesterol 38.1 L (40.0-60.0) mg/dL Cholesterol/HDL Ratio 6.71 Ratio CBC 05/24/18 05/25/18 05/26/18 Range/Units 15:35 02:50 01:13 WBC 11.0 5.8 4.5 (4.0-11.0) th/mm3 RBC 5.09 4.43 L 4.37 L (4.50-5.90) mil/mm3 Hgb 16.4 14.3 D 13.7 (13.0-17.0) gm/dL Hct 47.1 40.6 40.1 (39.0-51.0) % Plt Count 260 233 202 (150-450) th/mm3 Neut # (Auto) 7.6 2.4 1.8 (1.8-7.7) th/mm3 Lymph # (Auto) 2.2 2.6 2.1 (1.0-4.8) th/mm3 [place] # (Auto) 0.9 0.5 0.4 (0.0-0.9) th/mm3 Eos # (Auto) 0.2 0.2 0.2 (0.0-0.4) th/mm3 Baso # (Auto) 0.1 0.0 0.0 (0.0-0.2) th/mm3 Comprehensive Metabolic Panel 05/24/18 05/25/18 05/26/18 Range/Units 15:35 02:50 01:13 Sodium 130 L 134 L 137 (136-145) meq/L Potassium 4.5 4.2 4.4 (3.5-5.1) meq/L Chloride 99 101 104 (98-107) meq/L Carbon Dioxide 17.4 L 21.4 24.6 (21.0-32.0) meq/L BUN 36 H 37 H 30 H (7-18) mg/dL Creatinine 2.16 H 1.73 H 1.42 H (0.60-1.30) mg/dL Calcium 9.8 8.9 D 8.6 (8.5-10.1) mg/dL AST 34 30 (15-37) U/L ALT 38 39 (12-78) U/L Alkaline Phosphatase 84 73 (45-117) U/L Total Protein 8.4 H 7.0 D (6.4-8.2) g/dL Albumin 4.0 3.3 L D (3.4-5.0) g/dL Intake and Output 05/25/18 05/26/18 05/26/18 22:59 06:59 14:59 Intake Total 1480 / 1480 1490 / 1490 Balance 1480 / 1480 1490 / 1490 Intake: IV 1000 / 1000 1250 / 1250 Heparin/D5W 25,000 U/250 mL 25, 250 / 250 000 unit In 250 ml @ Per Protocol IV.CONT TITRATE PRN Rx #:[id number] NS Inj 1,000 ML @ 100 mls/hr IV 1000 / 1000 1000 / 1000 .CONT .Q10H EDI Rx#:[id number] Oral 480 / 480 240 / 240 Other: # Voids 4 4 Weight 121.2 kg - Imaging and Cardiology Imaging: Impressions Venous Doppler Study 05/24/18 00:00 CONCLUSION: 1. No sonographic evidence for lower extremity DVT. Chest X-Ray 05/24/18 15:31 CONCLUSION: No acute cardiopulmonary disease. Myocardial Perfusion Scan Nuc Med 05/25/18 00:00 CONCLUSION: 1. Fixed perfusion abnormality involving the anterior wall of the left ventricle. 2. No significant reversible perfusion abnormalities noted. 3. Ventricular dilatation with depressed ejection fraction measuring 32%. 4. Generalized hypokinesia to severe along the anterior wall. Assessment and Plan - Assessment (1) Elevated troponin Code(s): R74.8 - Abnormal levels of other serum enzymes Status: Acute Plan: Stable overnight. No further atypical CP. Renal indices improving. Nuclear stress test shows fixed anterior defect, ? more due to breast attenuation artefact rather than infarction. No ischemia demonstrated. RECOMMEND start beta he/aspirin, no ROB-I with his renal insufficiency, check echo (can be done as outpatient if not done today and discharge later today) (2) Hypertension Code(s): I10 - Essential (primary) hypertension Status: Chronic Plan: Mildly hypertensive. Recommend initiate beta he. - Plan Code Status: full code Discussed Condition With: patient (2) Hypertension Qualifiers: Hypertension type: essential hypertension Qualified Code(s): I10 - Essential (primary) hypertension
[2018-05-26] MEDS ORDERED: Carvedilol 6.25 MG Tablet PO SCH (11:00)
--- NOTE | 2018-05-26 11:38 | P.PN ---
Subjective Interval history: Follow-up of atypical chest pain May 25, 2018-patient seen and examined, currently denies any chest pain or shortness of breath. N.p.o. pending nuclear stress test. by the bedside. Only complains of neck pain. May 26, 2018-patient seen and examined, denies any chest pain or shortness of breath. Reports improvement of neck pain. Completed nuclear stress test today. Physical Exam Vital signs: Vital Signs 05/25/18 13:00 05/25/18 14:00 05/25/18 15:00 Temperature 98.0 F Pulse Rate 90 94 H 97 H Respiratory Rate 20 Blood Pressure 127/54 L Pulse Oximetry 95 05/25/18 16:00 05/25/18 17:00 05/25/18 18:00 Temperature Pulse Rate 88 92 H 96 H Respiratory Rate Blood Pressure Pulse Oximetry 05/25/18 19:00 05/25/18 20:00 05/25/18 21:00 Temperature Pulse Rate 99 H 96 H 64 Respiratory Rate Blood Pressure Pulse Oximetry 97 05/25/18 22:00 05/25/18 22:15 05/25/18 23:00 Temperature 98.1 F Pulse Rate 94 H 82 85 Respiratory Rate 18 Blood Pressure 146/78 H Pulse Oximetry 97 05/26/18 00:00 05/26/18 01:00 05/26/18 02:00 Temperature Pulse Rate 86 83 88 Respiratory Rate Blood Pressure Pulse Oximetry 05/26/18 03:00 05/26/18 04:00 05/26/18 05:00 Temperature 98.2 F Pulse Rate 86 80 81 Respiratory Rate 16 Blood Pressure 149/55 H Pulse Oximetry 98 05/26/18 06:00 Temperature Pulse Rate 80 Respiratory Rate Blood Pressure Pulse Oximetry Intake & Output 05/25/18 05/26/18 05/26/18 18:59 06:59 18:59 Intake Total 1480 / 1480 1490 / 1490 1000 / 1000 Balance 1480 / 1480 1490 / 1490 1000 / 1000 Weight 121.2 kg Intake: IV 1000 / 1000 1250 / 1250 1000 / 1000 Heparin/D5W 25,000 U/250 mL 25, 250 / 250 000 unit In 250 ml @ Per Protocol IV.CONT TITRATE PRN Rx #:[id number] NS Inj 1,000 ML @ 100 mls/hr IV 1000 / 1000 1000 / 1000 1000 / 1000 .CONT .Q10H EDI Rx#:[id number] Oral 480 / 480 240 / 240 Other: # Voids 4 4 Narrative: GENERAL: Well-nourished, well-developed adult male in no obvious distress. SKIN: Warm and dry. Ball of left foot has thick callus. Scattered small scratches and lesions as well as discolored lower legs. HEAD: Atraumatic. Normocephalic. CARDIOVASCULAR: Regular rate and rhythm. No murmur. No chest pain with palpitation of chest wall. RESPIRATORY: No accessory muscle use. Clear to auscultation. Breath sounds equal bilaterally. GASTROINTESTINAL: Abdomen obese, soft, non-tender, non-distended. Positive bowel sounds. MUSCULOSKELETAL: Bilateral lower legs with PVD. Pulses palpable. No edema. no obvious deformities. NEUROLOGICAL: Awake and alert. No obvious cranial nerve deficits. Motor grossly within normal limits. Normal speech. PSYCHIATRIC: Appropriate mood and affect; insight and judgment good. Results - Labs CBC & Chem 7: 05/26/18 01:13 05/26/18 01:13 Laboratory Results - last 24 hr 05/25/18 05/25/18 05/25/18 12:32 16:27 18:05 WBC RBC Hgb Hct MCV MCH MCHC RDW Plt Count MPV Neut % (Auto) Lymph % (Auto) [place] % (Auto) Eos % (Auto) Baso % (Auto) Neut # (Auto) Lymph # (Auto) [place] # (Auto) Eos # (Auto) Baso # (Auto) WBC Differential Differential Comment APTT 27.0 Sodium Potassium Chloride Carbon Dioxide Anion Gap BUN Creatinine Estimated GFR POC Glucose 302 H 310 H Random Glucose Calcium Total Bilirubin AST ALT Alkaline Phosphatase Total Protein Albumin 05/25/18 05/26/18 05/26/18 20:06 01:13 01:13 WBC 4.5 RBC 4.37 L Hgb 13.7 Hct 40.1 MCV 91.7 MCH 31.4 MCHC 34.3 RDW 13.6 Plt Count 202 MPV 7.5 Neut % (Auto) 39.6 Lymph % (Auto) 46.3 H [place] % (Auto) 9.6 H Eos % (Auto) 3.7 Baso % (Auto) 0.8 Neut # (Auto) 1.8 Lymph # (Auto) 2.1 [place] # (Auto) 0.4 Eos # (Auto) 0.2 Baso # (Auto) 0.0 WBC Differential . Differential Comment Auto diff final APTT Sodium 137 Potassium 4.4 Chloride 104 Carbon Dioxide 24.6 Anion Gap 8 BUN 30 H Creatinine 1.42 H Estimated GFR 53 L POC Glucose 262 H Random Glucose 246 H Calcium 8.6 Total Bilirubin 0.2 AST 30 ALT 39 Alkaline Phosphatase 73 Total Protein 7.0 D Albumin 3.3 L D 05/26/18 05/26/18 01:13 08:14 WBC RBC Hgb Hct MCV MCH MCHC RDW Plt Count MPV Neut % (Auto) Lymph % (Auto) [place] % (Auto) Eos % (Auto) Baso % (Auto) Neut # (Auto) Lymph # (Auto) [place] # (Auto) Eos # (Auto) Baso # (Auto) WBC Differential Differential Comment APTT 27.8 Sodium Potassium Chloride Carbon Dioxide Anion Gap BUN Creatinine Estimated GFR POC Glucose 216 H Random Glucose Calcium Total Bilirubin AST ALT Alkaline Phosphatase Total Protein Albumin - Imaging Impressions Myocardial Perfusion Scan Nuc Med 05/25/18 00:00 CONCLUSION: 1. Fixed perfusion abnormality involving the anterior wall of the left ventricle. 2. No significant reversible perfusion abnormalities noted. 3. Ventricular dilatation with depressed ejection fraction measuring 32%. 4. Generalized hypokinesia to severe along the anterior wall. - Procedures None Assessment and Plan - Plan 52-year-old man with Atypical chest pain-resolved Currently on heparin drip, Nitropaste Appreciate input from cardiology Nuclear stress test completed May 26, 2018 Nuclear stress test shows fixed anterior defect, ? more due to breast attenuation artefact rather than infarction. No ischemia demonstrated. Currently on beta-he, aspirin. 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 Hyponatremia Improving Diabetes; poorly controlled Continue with insulin sliding scale, will start basal insulin Hold all oral hyperglycemic agents DVT prophylaxis: On heparin drip
--- NOTE | 2018-05-26 11:44 | P.DS ---
Date of admission: 05/24/18 17:11 Primary care physician: David Edward MD Brief History from admission: Patient is a 52-year-old male with a history of leukemia (2010), DVT ( Eliquis), PE, IVC filter, diabetes, hyperlipidemia and PVD who presents to the emergency room for evaluation of chest pain. Symptoms started approximately 1 hour prior to arrival and included substernal chest pressure, left arm cramping , lightheadedness, dizziness, nausea and diaphoresis. Patient called his primary care provider who recommended that he go to the emergency room. Chest pain has now resolved with 2 doses of nitro. He is not having any shortness of breath while sitting but reports that any sort of exertion makes him very short of breath. He does currently have some congestion and a cold for which he is taking antibiotics. Reports that he does frequently get cramps throughout his body and that this has been happening ever since he had leukemia , but the current chest pain is different. Denies any history of coronary artery disease. No history of prior heart cath. He does report a history of hyperlipidemia. At one time was on cholesterol medication but improved and was taken off of it. Recently restarted on medication by his oncology coordinator. Diabetes is poorly controlled with a last known A1c of approximately 9. No history of COPD or asthma. Non-smoker. 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 Most of his current problems including diabetes, DVT/PE, PVD and cramping developed after his treatment for AML/ALL. DS: Medications - Discharge Medications Prescriptions: aspirin 81 mg PO DAILY #30 tab carvedilol [Coreg] 6.25 mg PO BID #60 tab DS: Summary Hospital Course: Patient admitted secondary to atypical chest pain was found to have elevated troponin I and underwent ACS ruled out per protocol serial cardiac enzyme and EKGs. Initially placed on heparin drip cardiology was consulted, patient had a nuclear stress test which did not reveal any ischemia. He was treated with beta -he and aspirin. ROB inhibitor is contraindicated secondary to chronic kidney disease. Patient renal indices improved with IV fluid hydration. DVT and GI prophylaxis were provided. Prior to discharge, patient's conditions improved and vitals remained stable. - Time Spent with Patient Total time spent providing and/or coordinating discharge services: Less than 30 minutes Exam Vital signs: Vital Signs 05/25/18 13:00 05/25/18 14:00 05/25/18 15:00 Temperature 98.0 F Pulse Rate 90 94 H 97 H Respiratory Rate 20 Blood Pressure 127/54 L Pulse Oximetry 95 05/25/18 16:00 05/25/18 17:00 05/25/18 18:00 Temperature Pulse Rate 88 92 H 96 H Respiratory Rate Blood Pressure Pulse Oximetry 05/25/18 19:00 05/25/18 20:00 05/25/18 21:00 Temperature Pulse Rate 99 H 96 H 64 Respiratory Rate Blood Pressure Pulse Oximetry 97 05/25/18 22:00 05/25/18 22:15 05/25/18 23:00 Temperature 98.1 F Pulse Rate 94 H 82 85 Respiratory Rate 18 Blood Pressure 146/78 H Pulse Oximetry 97 05/26/18 00:00 05/26/18 01:00 05/26/18 02:00 Temperature Pulse Rate 86 83 88 Respiratory Rate Blood Pressure Pulse Oximetry 05/26/18 03:00 05/26/18 04:00 05/26/18 05:00 Temperature 98.2 F Pulse Rate 86 80 81 Respiratory Rate 16 Blood Pressure 149/55 H Pulse Oximetry 98 05/26/18 06:00 Temperature Pulse Rate 80 Respiratory Rate Blood Pressure Pulse Oximetry Intake & Output 05/25/18 05/26/18 05/26/18 18:59 06:59 18:59 Intake Total 1480 / 1480 1490 / 1490 1000 / 1000 Balance 1480 / 1480 1490 / 1490 1000 / 1000 Weight 121.2 kg Intake: IV 1000 / 1000 1250 / 1250 1000 / 1000 Heparin/D5W 25,000 U/250 mL 25, 250 / 250 000 unit In 250 ml @ Per Protocol IV.CONT TITRATE PRN Rx #:[id number] NS Inj 1,000 ML @ 100 mls/hr IV 1000 / 1000 1000 / 1000 1000 / 1000 .CONT .Q10H EDI Rx#:[id number] Oral 480 / 480 240 / 240 Other: # Voids 4 4 Narrative: GENERAL: Well-nourished, well-developed adult male in no obvious distress. SKIN: Warm and dry. Ball of left foot has thick callus. Scattered small scratches and lesions as well as discolored lower legs. HEAD: Atraumatic. Normocephalic. CARDIOVASCULAR: Regular rate and rhythm. No murmur. No chest pain with palpitation of chest wall. RESPIRATORY: No accessory muscle use. Clear to auscultation. Breath sounds equal bilaterally. GASTROINTESTINAL: Abdomen obese, soft, non-tender, non-distended. Positive bowel sounds. MUSCULOSKELETAL: Bilateral lower legs with PVD. Pulses palpable. No edema. no obvious deformities. NEUROLOGICAL: Awake and alert. No obvious cranial nerve deficits. Motor grossly within normal limits. Normal speech. PSYCHIATRIC: Appropriate mood and affect; insight and judgment good. Results Procedures completed during hospitalization: None Labs on day of discharge: Labs from last 24 hours 05/26/18 05/26/18 05/26/18 08:14 01:13 01:13 WBC RBC Hgb Hct MCV MCH MCHC RDW Plt Count MPV Neut % (Auto) Lymph % (Auto) [place] % (Auto) Eos % (Auto) Baso % (Auto) Neut # (Auto) Lymph # (Auto) [place] # (Auto) Eos # (Auto) Baso # (Auto) WBC Differential Differential Comment APTT 27.8 Sodium Potassium Chloride Carbon Dioxide Anion Gap BUN Creatinine Estimated GFR POC Glucose 216 H Random Glucose Hemoglobin A1c Pending Calcium Total Bilirubin AST ALT Alkaline Phosphatase Total Protein Albumin 05/26/18 05/26/18 05/25/18 01:13 01:13 20:06 WBC 4.5 RBC 4.37 L Hgb 13.7 Hct 40.1 MCV 91.7 MCH 31.4 MCHC 34.3 RDW 13.6 Plt Count 202 MPV 7.5 Neut % (Auto) 39.6 Lymph % (Auto) 46.3 H [place] % (Auto) 9.6 H Eos % (Auto) 3.7 Baso % (Auto) 0.8 Neut # (Auto) 1.8 Lymph # (Auto) 2.1 [place] # (Auto) 0.4 Eos # (Auto) 0.2 Baso # (Auto) 0.0 WBC Differential . Differential Comment Auto diff final APTT Sodium 137 Potassium 4.4 Chloride 104 Carbon Dioxide 24.6 Anion Gap 8 BUN 30 H Creatinine 1.42 H Estimated GFR 53 L POC Glucose 262 H Random Glucose 246 H Hemoglobin A1c Calcium 8.6 Total Bilirubin 0.2 AST 30 ALT 39 Alkaline Phosphatase 73 Total Protein 7.0 D Albumin 3.3 L D 1205/25/18 05/25/18 18:05 16:27 12:32 WBC RBC Hgb Hct MCV MCH MCHC RDW Plt Count MPV Neut % (Auto) Lymph % (Auto) [place] % (Auto) Eos % (Auto) Baso % (Auto) Neut # (Auto) Lymph # (Auto) [place] # (Auto) Eos # (Auto) Baso # (Auto) WBC Differential Differential Comment APTT 27.0 Sodium Potassium Chloride Carbon Dioxide Anion Gap BUN Creatinine Estimated GFR POC Glucose 310 H 302 H Random Glucose Hemoglobin A1c Calcium Total Bilirubin AST ALT Alkaline Phosphatase Total Protein Albumin - Impressions ITS Impressions Venous Doppler Study 05/24/18 00:00 CONCLUSION: 1. No sonographic evidence for lower extremity DVT. Chest X-Ray 05/24/18 15:31 CONCLUSION: No acute cardiopulmonary disease. Myocardial Perfusion Scan Nuc Med 05/25/18 00:00 CONCLUSION: 1. Fixed perfusion abnormality involving the anterior wall of the left ventricle. 2. No significant reversible perfusion abnormalities noted. 3. Ventricular dilatation with depressed ejection fraction measuring 32%. 4. Generalized hypokinesia to severe along the anterior wall. Discharge Plan - Discharge Disposition Patient Disposition: 01 Discharge Home - Discharge Condition Condition: Stable - Discharge Order Discharge Orders: Discharge Order (Routine); Ordered 05/26/18 Ordered By: Bartolome Ramos Cardiology Clear for Discharge (Routine); Ordered 05/26/18 Ordered By: Daniel Meeks - Physicians Team Primary Care Provider: David Edward Attending Provider: Bartolome Ramos Other Providers: Leroy Chatterjee, DO ; [employer]
[2018-05-26 14:45] VITALS: BP 108/85; TEMP 98.3; O2SAT 98
[2018-05-26 14:50] VITALS: PULSE 81
[2018-05-27 12:20] LABS: Hemoglobin A1c 10.6 % (4.3-6.0)
== END 2018-05-26 14:48 | disposition home or self-care (01) | DRG 313 ==
LOC: NEPE 15:08 → NEDA 17:11 → HCIS 18:50
PROVIDERS: ADMIT Hospitalist; ATTEND Hospitalist
CPT/HCPCS: 71010; 71045; 78452; 80048; 80053; 80061; 82550; 82552; 82948; 82962; 83036; 83735; 84443; 84484; 85025; 85610; 85730; 87275; 87276; 87804; 90761; 90774; 90775; 90784; 93005; 93017; 93970; 96361; 96374; 96375; 99285; A9502; C8952; J1644; J1815; J2270; J2405; J2785; J7030; J7040